=== PATIENT | female | born 1960 | race Two or more races ===

== ENCOUNTER 2024-09-30 05:49 | Inpatient (IN) | payer MEDICARE, OTHER ==
[~2024-09-30] VITALS: Ht 162.6 cm; Wt 57.4 kg
[2024-09-30] VITALS (7 sets, daily range): BP systolic 114–115; BP diastolic 67–76; PULSE 104–110; RESP 17–20; TEMP 98.2–98.8; O2SAT 93–98
--- NOTE | 2024-09-30 06:36 | ED.PDOC ---
History of Present Illness HPI Comments 56 year old female presents to the ED via EMS with a chief complaint of bilateral leg pain. Patient has stage 4 thyroid cancer, has metastasized to lungs, liver, bones, currently on chemo and is currently bed bound due to weakness. Patient was seen at [facility] 10 days ago due to a fall, was admitted for 3 days due to brain bleed, was discharged and advised to follow up with Neurosurgeon as outpatient, has not followed up. Patient called EMS due to bilateral leg pain with swelling noted, spoke to Oncologist and was advised to come to ED due to pain. No other symptoms or modifying factors present at this time. Chief Complaint: Lower Extremity Time Seen by MD: 06:15 Reviewed Notes: Medications, Allergies Allergies: Coded Allergies: Iodine (Verified Allergy, Unknown, 09/30/24) Penicillins (Verified Allergy, Unknown, 09/30/24) Prednisone (Verified Allergy, Unknown, 09/30/24) Sulfa Antibiotics (Verified Allergy, Unknown, 09/30/24) Information Source: Patient, Emergency Med Personnel Mode of Arrival: EMS Severity: Moderate Timing: Hours Duration: Since onset Prehospital treatment: None Past Medical History PAST MEDICAL HISTORY: Cancer (stage 4 thyroid) Surgical History: Unknown WELDER TECH History: Denies all WELDER TECH Hx Family History Family History: Reviewed,noncontributory to illness, No family hx of Cancer, No family hx of DM, No family hx of Heart reyes, No family hx of HTN, No family hx ofKidney reyes, No family hx of Liver reyes, No family hx of Lung reyes, No family hx of Stroke Social History Smoker: Non-Smoker Alcohol: Denies ETOH Use Drugs: Denies Drug Use Lives In: Home Constitutional: denies: chills, diaphoresis, fatigue, fever, malaise, sweats, weakness, others EENTM: denies: blurred vision, double vision, ear bleeding, ear discharge, ear drainage, ear pain, ear ringing, eye pain, eye redness, hearing loss, mouth pain, mouth swelling, nasal discharge, nose bleeding, nose congestion, nose pain, photophobia, tearing, throat pain, throat swelling, voice changes, others Respiratory: denies: cough, hemoptysis, orthopnea, SOB at rest, shortness of breath, SOB with excertion, stridor, wheezing, others Cardiovascular: denies: chest pain, dizzy spells, diaphoresis, Dyspnea on exertion, edema, irregular heart beat, left arm pain, lightheadedness, palpitations, PND, syncope, others Gastrointestinal: denies: abdomen distended, abdominal pain, blood streaked bowels, constipated, diarrhea, dysphagia, difficulty swallowing, hematemesis, melena, nausea, poor appetite, poor fluid intake, rectal bleeding, rectal pain, vomiting, others Genitourinary: denies: abnormal vagina bleeding, burning, dyspareunia, dysuria, flank pain, frequency, hematuria, incontinence, pain, , vagina discharge, urgency, others Neurological: denies: dizziness, fainting, headache, left sided numbness, left sided weakness, numbness, paresthesia, pre-existing deficit, right sided numbness, right sided weakness, seizure, speech problems, tingling, tremors, weakness, others Musculoskeletal: reports: others (bilateral leg pain); denies: back pain, gout, joint pain, joint swelling, muscle pain, muscle stiffness, neck pain Integumetry: denies: bruises, change in color, change in hair/nails, dryness, laceration, lesions, lumps, rash, wounds, others Allergic/Immunocompromised: denies: Difficulty Healing, Frequent Infections, Hives, Itching, others Hematologic/Lymphatic: denies: anemia, blood clots, easy bleeding, easy bruising, swollen glands, others Endocrine: denies: excessive hunger, excessive sweating, excessive thirst, excessive urination, flushing, intolerance to cold, intolerance to heat, unexplained weight gain, unexplained weight loss, others Psychiatric: denies: anxiety, bipolar disorder, depression, hopeless, panic disorder, schizophrenia, sleepless, suicidal, others All Other Systems: Reviewed and Negative Physical Exam General Appearance: Moderate Distress, Normal HEENT: Normal ENT Inspection, Pharynx Normal, TMs Normal Neck: Full Range of Motion, Non-Tender, Normal, Normal Inspection Respiratory: Chest Non-Tender, Lungs Clear, No Accessory Muscle Use, No Respiratory Distress, Normal Breath Sounds Cardiovascular: No Edema, No JVD, No Murmur, No Gallop, Normal Peripheral Pulses, Tachycardia Breast Exam: Deferred Gastrointestinal: No Organomegaly, Non Tender, No Pulsatile Mass, Normal Bowel Sounds, Soft Genitalia: Deferred Pelvic: Deferred Rectal: Deferred Extremities: No calf tenderness, Normal capillary refill, Non-tender, No pedal edema Musculoskeletal : Apperance: Normal Neurologic: Alert Cerebellar Function: NOT DONE Reflexes: NOT DONE Skin: Dry, Normal Color, Warm Peripheral Pulses: 3+ Radial (R), 3+ Radial (L) Lymphatic: No Adenopathy Was a procedure done? Was a procedure done?: No Differential Dx Considerations may include: Chronic pain syndrome X-Ray, Labs, Meds, VS Vital Signs Date Time Temp Pulse Resp B/P (MAP) Pulse Ox O2 Delivery O2 Flow Rate FiO2 09/30/24 06:43 97.9 111 15 143/91 (108) 95 97.9 09/30/24 06:02 98.2 110 15 135/80 99 98.2 Lab Test 09/30/24 06:50 Range/Units White Blood Count 4.3 L 4.4-10.8 10^3/uL Red Blood Count 2.41 L 4.0-5.20 10^6/uL Hemoglobin 7.3 L 12.2-16.2 g/dL Hematocrit 21.3 L 36.0-46.0 % Mean Corpuscular Volume 88.2 80.0-100.0 fL Mean Corpuscular Hemoglobin 30.2 28.0-32.0 pg Mean Corpuscular Hemoglobin Concent 34.2 32.0-36.0 g/dL Red Cell Distribution Width 18.0 H 11.8-14.3 % Platelet Count 162 140-450 10^3/uL Mean Platelet Volume 8.6 6.9-10.8 fL Neutrophils (%) (Auto) 78.5 37.0-80.0 % Lymphocytes (%) (Auto) 12.8 10.0-50.0 % Monocytes (%) (Auto) 7.3 0.0-12.0 % Eosinophils (%) (Auto) 1.1 0.0-7.0 % Basophils (%) (Auto) 0.3 0.0-2.0 % Neutrophils # (Auto) 3.3 1.6-8.6 10 ^3/uL Lymphocytes # (Auto) 0.5 0.4-5.4 10 ^3/uL Monocytes # (Auto) 0.3 0-1.3 10 ^3/uL Eosinophils # (Auto) 0 0-0.8 10 ^3/uL Basophils # (Auto) 0 0-0.2 10 ^3/uL Nucleated Red Blood Cells 0.3 % Sodium Level Pending Potassium Level Pending Chloride Level Pending Carbon Dioxide Level Pending Anion Gap Pending Blood Urea Nitrogen Pending Creatinine Pending Glomerular Filtration Rate Calc Pending BUN/Creatinine Ratio Pending Serum Glucose Pending Lactic Acid Level Pending Calcium Level Pending Current Medications Medications (Trade) Dose Ordered Sig/Joe Route Start Time Stop Time Status Last Admin Sodium Chloride 1,000 ml @ 1,000 mls/hr Q1H ONCE IV 09/30/24 06:45 09/30/24 07:44 09/30/24 07:02 Patient alert. Complaining of pain. Vitals stable. Answering questions. Tachycardia. Establish intravenous access. Was given fluids. Metastatic disease. Explained to the patient she will be admitted for pain control. Continue monitoring. Time of 1ST Reevaluation: 06:45 Reevaluation 1ST: Unchanged Patient Education/Counseling: Diagnosis, Treatment, Prognosis Family Education/Counseling: No Family Present Additional Information The following tests were ordered, and results were reviewed by me: CBC, UA, BMP, BLOOD CULTURE, LA W/ REFLEX Additional Information was gathered from interviewing the following independent historians: EMS I discussed treatment and results with medical personnel and: patient Comprehensive systems review obtained and negative except for what is stated in the HPI. SEPSIS Sepsis Screen Date sepsis recognized/suspect: Sep 30, 2024 Time Sepsis recognized/suspect: 0555 Recent Procedure: No On Antibiotic Therapy: No Respiratory Rate >20: No Heart Rate >90: Yes Temp<36 C (96.8 F) or >38.3 C: No SBP <90 or MAP <65 mmHG: No New Acute Mental Status Change: No Is the patient on CPAP, BIPAP,: No Physician Orders Urinalysis (09/30/24 06:40) Basic Metabolic Panel (09/30/24 06:40) Sodium Chloride 0.9% (09/30/24 06:45) Sodium Chloride 0.9% (09/30/24 06:45) Blood Culture (09/30/24 06:40) Lactic Acid W/ Reflex Order (09/30/24 06:40) Vital Signs Date Time Temp Pulse Resp B/P (MAP) Pulse Ox O2 Delivery O2 Flow Rate FiO2 09/30/24 06:43 97.9 111 15 143/91 (108) 95 97.9 09/30/24 06:02 98.2 110 15 135/80 99 98.2 Laboratory Tests Test 09/30/24 06:50 Lactic Acid Level Pending White Blood Count 4.3 10^3/uL (4.4-10.8) L Medications Medications Dose Ordered Sig/Joe Route Start Time Stop Time Status Last Admin Dose Admin Sodium Chloride 1,000 ml @ 1,000 mls/hr Q1H ONCE IV 09/30/24 06:45 09/30/24 07:44 09/30/24 07:02 Departure 1 Departure Time of Disposition: 07:37 Impression: Primary Impression: Metastatic disease Qualified Codes: C79.9 - Secondary malignant neoplasm of unspecified site Additional Impression: Chronic pain syndrome Disposition: ADMITTED INPATIENT Admit to: Med Surg Condition: Guarded Critical Care Note Critical Care Time?: No Stability Stability form required: No Heart Score Heart Score: Heart Score Response (Comments) Value History N/A 0 EKG N/A 0 Age N/A 0 Risk Factors N/A 0 Troponin N/A 0 Total 0 I personally scribed for GOKUL GUTIERREZ MD ([email or web address]) on 09/30/24 at 06:36. Electronically submitted by Radha Springer ([email or web address]). I personally scribed for GOKUL GUTIERREZ MD ([email or web address]) on 09/30/24 at 07:14. Electronically submitted by Radha Springer ([email or web address]). GOKUL GUTIERREZ MD Sep 30, 2024 06:36
[2024-09-30] MEDS: SODIUM CHLORIDE 0.9% 1,000 ML IV ONE ×2 (07:02→09:36)
[2024-09-30 07:22] LABS: Hematocrit 21.3 % (36.0-46.0); Hemoglobin 7.3 g/dL (12.2-16.2); Mean Corpuscular Hemoglobin 30.2 pg (28.0-32.0); Mean Corpuscular Volume 88.2 fL (80.0-100.0); Nucleated Red Blood Cells % 0.3 %
[2024-09-30 07:26] LABS: Chloride 103 mmol/L (98-107); Potassium 4.9 mmol/L (3.5-5.1); Sodium 138 mmol/L (136-145)
[2024-09-30 07:27] LABS: Anion Gap 10 (5-15); Carbon Dioxide 25 mmol/L (20-31)
[2024-09-30 07:32] LABS: BUN/Creatinine Ratio 19.6 (10.0-20.0)
[2024-09-30] MEDS: ONDANSETRON HCL 4 MG/2 ML VIAL IV ONE (07:41)
[2024-09-30] MEDS: HYDROmorphone HCL 2 MG/ML VL/or syr IV ONE ×2 (07:42→16:51)
[2024-09-30 07:45] LABS: Blood Urea Nitrogen 27 mg/dL (9-23); Calcium 6.9 mg/dL (8.7-10.4); Glucose 108 mg/dL (74-106)
[2024-09-30] MEDS: SODIUM CHLORIDE 0.9% 1,000 ML IV SCH (15:00)
[2024-09-30] MEDS: PANTOPRAZOLE 40 MG/10 ML VIAL INJ IV SCH (15:26)
--- NOTE | 2024-09-30 15:39 | DVH ---
EXAM: CT HEAD WITHOUT CONTRAST INDICATION: rule out intracranial bleed TECHNIQUE: CT of the head without intravenous contrast. Radiation Dose Information: CT Dose: CTDI volume is 53.99 mGy. Dose-length product is 863.9 mGy*cm The dose indicators for CT are the volume Computed Tomography (CT) Dose Index (CTDIvol) and the Dose Length Product (DLP), and are measured in units of mGy and mGy-cm, respectively. These indicators are not patient dose, but values generated from the CT scanner acquisition factors. The report includes radiation exposure data for exposures received during this examination. COMPARISON: None FINDINGS: There is no evidence of acute intracranial hemorrhage, extra-axial collection, mass effect, midline s hift, herniation or hydrocephalus. The ventricles, sulci and cisterns are age appropriate. The arroyo-white differentiation is intact. Patchy periventricular and subcortical white matter hypoattenuation is nonspecific but may be related to small vessel ischemic disease. Pole round lucencies in the bony calvarium varying size. Etiology uncertain. These may represent jose raul ous lakes can not exclude lytic lesions other etiologies. Consider MRI for further evaluation. The visualized paranasal sinuses and mastoid air cells are clear. The surrounding soft tissues and osseous structures are unremarkable. IMPRESSION: 1. No acute intracranial abnormality. 2. No acute intracranial hemorrhage. 3. Large lucent areas in the bony calvarium size is most likely venous lakes.
[2024-09-30 15:51] LABS: Amphetamine Screen, Urine Neg (NEGATIVE); Barbiturate Scree,Urine Neg (NEGATIVE); Benzodiazephine Screen, Urine Neg (NEGATIVE); Cannabinoid Screen, Urine Neg (NEGATIVE); Cocaine Screen, Urine Neg (NEGATIVE); Opiate Scree,Urine Neg (NEGATIVE); Phencyclidine Screen, Urine Neg (NEGATIVE)
--- NOTE | 2024-09-30 16:19 | DVH ---
US BiLat Lower DVT HISTORY: rule out DVT COMPARISON: None TECHNIQUE: Duplex doppler evaluation of the deep venous system of the lower extremity from the common femoral veins, superficial femoral vein, great saphenous vein, deep femoral vein, popliteal vein, an d calf veins, including color doppler and spectral/pulsed waveform analysis, was performed. FINDINGS: Right: - Common femoral vein: Compressible - Deep femoral vein: Compressible - Femoral vein: Compressible - Popliteal vein: Compressible - Posterior tibial vein: Waveforms present - Other: Nothing Left: - Common femoral vein: Compressible - Deep femoral vein: Compressible - Femoral vein: Compressible - Popliteal vein: Compressible - Posterior tibial vein: Waveforms present - Other: Nothing IMPRESSION: No right or left lower extremity deep venous thrombosis.
--- NOTE | 2024-09-30 16:35 | DVH ---
Indication: rule out obstruction Technique: Real-time ultrasound images of the neck vessels with arroyo-scale, color and wave Doppler we re obtained. Comparison: None Findings: The following peak systolic velocities were recorded in cm/sec: Right internal carotid: 92 Right common carotid: 66 Right external carotid: 67 Right internal/common carotid ratio: 1.4 Left internal carotid: 103 Left common carotid: 79 Left external carotid: 71 Left internal/common carotid ratio: 1.3 Right vertebral artery: Patent with normal antegrade direction of flow. Left vertebral artery: Patent with normal antegrade direction of flow. Impression: No hemodynamically significant stenosis by velocity criteria.
[2024-09-30 17:14] LABS: Albumin 3.8 g/dL (3.2-4.8); Bilirubin, Direct 0.2 mg/dL (<0.3); Bilirubin, Total 0.5 mg/dL (0.2-1.0); Total Protein 6.9 g/dL (5.7-8.2)
[2024-09-30 17:15] LABS: Free T3 2.13 pg/mL (2.3-4.2); Free T4 (Free Thyroxine) 0.97 ng/dL (0.89-1.76)
[2024-09-30 17:25] LABS: Alanine Aminotransferase < 9 U/L (7-40); Alkaline Phosphatase 230 U/L (46-116)
[2024-09-30 17:36] LABS: Urine Protein, UAD Trace (Negative)
[2024-09-30 17:40] LABS: INR 1.09 (0.9-1.15); Partial Thromboplastin Time 28.2 SEC (24.5-34.5); Prothrombin Time 11.5 sec (9.3-11.8)
[2024-09-30] MEDS ORDERED: [UNRECOGNIZED DRUG - CODE] PO (17:52)
[2024-09-30] MEDS ORDERED: AMLO1TAB22 PO (17:52)
[2024-09-30] MEDS ORDERED: CALC-312 PO (17:52)
[2024-09-30] MEDS ORDERED: MAGN1TAB29 PO (17:52)
[2024-09-30] MEDS ORDERED: HYDR-4798 PO (17:53)
[2024-09-30] MEDS ORDERED: IBUP-1456 PO (17:55)
--- NOTE | 2024-09-30 20:04 | DVHHPRES ---
History of Present Illness Resident Creating Document: BRITT TSAI RESIDENT Reason for Visit: b/l lower leg pain and weakness History of Present Illness Ms. Sage, 64-year-old female with past medical history significant for stage IV thyroid cancer status post total thyroidectomy in 2011, on chronic suppression therapy, in remission, ( previously known metastasis to lungs, liver, bones,), recent mechanical fall status post intracranial bleed, hypothyroidism, osteoarthritis came to the ED with chief complaints of bilateral leg pain, subjective weakness, without any fall or trauma. Denies any fever chills, trauma, fall, change of medication, recent surgery or immobility. Denies any previous history of bleeding or clotting disorder. Came from home as per the advice of hematoncologist for further evaluation of aforementioned symptoms , lives with family, notes compliance to the medication. Past Medical History stage IV thyroid cancer status post total thyroidectomy in 2011, on chronic suppression therapy, in remission, ( previously known metastasis to lungs, liver, bones,), recent mechanical fall status post intracranial bleed, hypothyroidism, osteoarthritis Past Surgical History s/p total thyroidectomy Family History: None, Other (noncontributory to the hopitalization ) Smoke: No ALCOHOL: none Drugs: None Lives: with Family Domestic Violence: Neg Review of Systems Constitutional: Yes: Weakness Eyes: No: Pain, Vision change, Conjunctivae inflammation, Eyelid inflammation, Other, Redness ENT: No: Ear pain, Ear discharge, Nose pain, Nose discharge, Nose congestion, Mouth pain, Mouth swelling, Throat pain, Throat swelling, Other Respiratory: No: Cough, Dry, Shortness of breath, SOB with excertion, Wheezing, Hemoptysis, Pleuritic Pain, Sputum, Wheezing, Other Cardiovascular: No: Chest Pain, Palpitations, Orthopnea, Paroxysmal Noc. Dyspnea, Edema, Lt Headedness, Other Gastrointestinal: No: Nausea, Vomiting, Abdominal Pain, Diarrhea, Constipation, Melena, Hematochezia, Other Genitourinary: No Dysuria, No Frequency, No Incontinence, No Hematuria, No Retention, No Other Musculoskeletal: back pain, foot pain Skin: No: Rash, Lesions, Jaundice, Bruising, Other Neurological: Weakness, Incoordination; No: Numbness, Change in speech, Confusion, Seizures, Other Allergies: Coded Allergies: Iodine (Verified Allergy, Unknown, 09/30/24) Penicillins (Verified Allergy, Unknown, 09/30/24) Prednisone (Verified Allergy, Unknown, 09/30/24) Sulfa Antibiotics (Verified Allergy, Unknown, 09/30/24) Medications Current Medications Medications Dose Ordered Sig/Joe Route Start Time Stop Time Status Last Admin Dose Admin Sodium Chloride 1,000 ml @ 60 mls/hr [id number] IV 09/30/24 15:00 09/30/24 15:00 60 MLS/HR Ondansetron HCl 4 mg Q4HP PRN IV 09/30/24 15:00 Pantoprazole Sodium 40 mg DAILY IV 09/30/24 15:15 09/30/24 15:26 40 MG Levothyroxine Sodium 100 mcg DAILY IV 10/01/24 10:00 UNV Exam Vital Signs Vital Signs Date Time Temp Pulse Resp B/P (MAP) Pulse Ox O2 Delivery O2 Flow Rate FiO2 09/30/24 17:20 98.8 98.8 09/30/24 17:15 110 20 114/67 (83) 98 09/30/24 08:53 Room Air* 0 21 General Appearance: Alert, Oriented X3, Cooperative, mild distress HEENT: Atraumatic, PERRLA, EOMI, Mucous membr. moist/pink Respiratory: Clear to auscultation, Normal air movement Cardiovascular: Regular rate, Normal S1, Normal S2, No murmurs, Other (tachycardia ) Abdominal: Normal bowel sounds, Soft, No tenderness, No hepatospenomegaly Extremities: No edema, Normal pulses, Other (tenderness on light tough b/l ) Skin: No rashes, No breakdown, No significant lesion Neuro: Other (deferred the patient has subjective felling of unsteadiness. ) Psych/Mental Status: Mental status NL, Mood NL Labs/Xrays Labs Test 09/30/24 16:57 09/30/24 16:50 09/30/24 14:20 09/30/24 06:50 Range/Units Lactic Acid Level 0.9 0.4-2.0 mmol/L Prothrombin Time 11.5 9.3-11.8 sec Prothrombin Time INR 1.09 0.9-1.15 Activated Partial Thromboplast Time 28.2 24.5-34.5 SEC D-Dimer, Quantitative 5.42 H 0.0-0.49 mg/L FEU Urine Color Light yellow Yellow Urine Clarity Clear Clear Urine pH 6.5 5.0-9.0 Urine Specific Nada 1.014 1.001-1.035 Urine Protein Trace H Negative Urine Ketones Negative Negative Urine Blood Trace H Negative /uL Urine Nitrite Negative Negative Urine Bilirubin Negative Negative Urine Urobilinogen Normal Negative mg/dL Urine Leukocyte Esterase Negative Negative /uL Urine RBC None seen 0 - 4 /hpf Urine Microscopic WBC 4 0-5 /HPF Urine Squamous Epithelial Cells Many <5 /hpf Urine Bacteria None seen None Seen /hpf Urine Glucose Normal Normal mg/dL Urine Opiates Screen Neg NEGATIVE Urine Fentanyl Screen Neg NEGATIVE Urine Barbiturates Screen Neg NEGATIVE Urine Phencyclidine Screen Neg NEGATIVE Urine Amphetamines Screen Neg NEGATIVE Urine Benzodiazepines Screen Neg NEGATIVE Urine Cocaine Screen Neg NEGATIVE Urine Cannabinoids Screen Neg NEGATIVE White Blood Count 4.3 L 4.4-10.8 10^3/uL Red Blood Count 2.41 L 4.0-5.20 10^6/uL Hemoglobin 7.3 L 12.2-16.2 g/dL Hematocrit 21.3 L 36.0-46.0 % Mean Corpuscular Volume 88.2 80.0-100.0 fL Mean Corpuscular Hemoglobin 30.2 28.0-32.0 pg Mean Corpuscular Hemoglobin Concent 34.2 32.0-36.0 g/dL Red Cell Distribution Width 18.0 H 11.8-14.3 % Platelet Count 162 140-450 10^3/uL Mean Platelet Volume 8.6 6.9-10.8 fL Neutrophils (%) (Auto) 78.5 37.0-80.0 % Lymphocytes (%) (Auto) 12.8 10.0-50.0 % Monocytes (%) (Auto) 7.3 0.0-12.0 % Eosinophils (%) (Auto) 1.1 0.0-7.0 % Basophils (%) (Auto) 0.3 0.0-2.0 % Neutrophils # (Auto) 3.3 1.6-8.6 10 ^3/uL Lymphocytes # (Auto) 0.5 0.4-5.4 10 ^3/uL Monocytes # (Auto) 0.3 0-1.3 10 ^3/uL Eosinophils # (Auto) 0 0-0.8 10 ^3/uL Basophils # (Auto) 0 0-0.2 10 ^3/uL Nucleated Red Blood Cells 0.3 % Sodium Level 138 136-145 mmol/L Potassium Level 4.9 3.5-5.1 mmol/L Chloride Level 103 98-107 mmol/L Carbon Dioxide Level 25 20-31 mmol/L Anion Gap 10 5-15 Blood Urea Nitrogen 27 H 9-23 mg/dL Creatinine 1.38 H 0.550-1.02 mg/dL Glomerular Filtration Rate Calc 45 >90 mL/min BUN/Creatinine Ratio 19.6 10.0-20.0 Serum Glucose 108 H 74-106 mg/dL Calcium Level 6.9 L 8.7-10.4 mg/dL Total Bilirubin 0.5 0.2-1.0 mg/dL Direct Bilirubin 0.2 <0.3 mg/dL Aspartate Amino Transferase (AST) 92 H 13-40 U/L Alanine Aminotransferase (ALT) < 9 7-40 U/L Alkaline Phosphatase 230 H 46-116 U/L Total Protein 6.9 5.7-8.2 g/dL Albumin 3.8 3.2-4.8 g/dL Thyroid Stimulating Hormone (TSH) 20.35 H 0.55-4.78 uIU/mL Free Thyroxine (T4) Calculated 0.97 0.89-1.76 ng/dL Free Triiodothyronine (T3) pg/mL 2.13 L 2.3-4.2 pg/mL Plasma/Serum Blood Alcohol < 3.0 <10 mg/dL SEPSIS Sepsis Screen Date sepsis recognized/suspect: Sep 30, 2024 Time Sepsis recognized/suspect: 719 Recent Procedure: No On Antibiotic Therapy: No Respiratory Rate >20: No Heart Rate >90: Yes Temp<36 C (96.8 F) or >38.3 C: No SBP <90 or MAP <65 mmHG: No New Acute Mental Status Change: No Is the patient on CPAP, BIPAP,: No Physician Orders Insert/Manage Urinary Catheter QSHIFT (09/30/24 14:33) Admit (09/30/24 14:51) Allergies (09/30/24 14:51) Code Status (09/30/24 14:51) Sodium Chloride 0.9% (09/30/24 15:00) Ondansetron Hcl (Zofran) (09/30/24 15:00) Fall Risk Precautions In Place QSHIFT (09/30/24 14:51) Complete Blood Count (10/01/24 04:00) Comprehensive Metabolic Panel (10/01/24 04:00) Npo (Nothing By Mouth) Diet (09/30/24 Dinner) Pt Request For Service (09/30/24 14:51) Echo 2d Mode Cardiac Dop (09/30/24 14:51) Carotid Duplx W Color Dop (09/30/24 14:51) Condition: Serious (09/30/24 14:51) Bedrest With Bathroom Privileg (09/30/24 14:51) Bedside Commode (09/30/24 14:51) Maintain Bed Rest (09/30/24 14:51) Sequential Compression Device (09/30/24 ) Head Without Contrast (09/30/24 14:59) Bilat Lower Dvt (09/30/24 14:59) Pantoprazole (Protonix) (09/30/24 15:15) Electrocardigram (09/30/24 15:06) Electrocardigram (09/30/24 16:06) Levothyroxine Injection (Synthroid Injec (09/30/24 19:30) Levothyroxine Injection (Synthroid Injec (10/01/24 10:00) Orthostatic Vital Signs (09/30/24 19:28) Ct Angio Chest Contrast (09/30/24 19:28) Vital Signs Date Time Temp Pulse Resp B/P (MAP) Pulse Ox O2 Delivery O2 Flow Rate FiO2 09/30/24 17:20 98.8 98.8 09/30/24 17:15 98.5 110 20 114/67 (83) 98 98.5 09/30/24 16:51 110 15 125/76 09/30/24 16:00 111 17 122/69 (86) 97 09/30/24 14:00 109 17 124/81 (95) 97 09/30/24 12:20 105 18 121/74 (90) 93 Laboratory Tests Test 09/30/24 16:57 Lactic Acid Level 0.9 mmol/L (0.4-2.0) Medications Medications Dose Ordered Sig/Joe Route Start Time Stop Time Status Last Admin Dose Admin Hydromorphone HCl 1 mg ONCE ONCE IV 09/30/24 16:45 09/30/24 16:46 DC 09/30/24 16:51 1 MG Pantoprazole Sodium 40 mg DAILY IV 09/30/24 15:15 09/30/24 15:26 40 MG Sodium Chloride 1,000 ml @ 60 mls/hr [id number] IV 09/30/24 15:00 09/30/24 15:00 60 MLS/HR Assessment/Plan Assessment/Plan # Sinus Tachycardia: palpiation r/o PE with CTPE if positive needs further discussion of anticoagulation risk benefit , EKG 12 lead pending. r/o R heart strain. 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 # hypothyroidism: TSH > 10 will start iv levothyroxine, dose adjustment at discharge and TSH f/u in 6-8 weeks # osteoarthritis: pain mx with PT as needed home analgesics # history of recent fall, mechanical: Fall precaution, physical therapy, check B12 folate. # Bilateral leg swelling, pain, weakness,: CT to check, depending on the further evaluation neurology questionable, DVT prophylaxis with SCDs only. DVT U/S to rule out thrombosis. 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 # Follows with the [facility] [place] hemat[place]cology # chronic neuropathic pain, back pain, on # High risk of stress GI ulcer # mild transamnitis follow cmp # hypocalcemia: vitamin d and caco3 # HTN: amlodipine5 at home, bp well managed, target 140/90 as per AHA/ACC start if BP elevated. # to r/o Retevmo (selpercatinib) side effects GI ppx: IV pantoprazole DVT ppx: NO anticoagulants, no ASA, no Lovenox, SCDs only. Code Status: Full. Plan and goals of care discussed over [address] Hyatt. Plan discussed with: Patient, Daughter My Orders Orders - BRITT TSAI RESIDENT Procedure Category Date Status Time Admit ADMIT 09/30/24 Transmitted 14:51 Allergies LARRY 09/30/24 In Process 14:51 Code Status CODE 09/30/24 Transmitted 14:51 Sodium Chloride 0.9% PHA 09/30/24 In Process 15:00 Ondansetron Hcl PHA 09/30/24 In Process (Zofran) 15:00 Fall Risk Precautions LARRY 09/30/[address] 14:51 Complete Blood Count LAB 10/01/24 Verified 04:00 Comprehensive LAB 10/01/24 Verified Metabolic Panel 04:00 Npo (Nothing By DIET 09/30/24 Transmitted Mouth) Diet Dinner Pt Request For Service PT 09/30/24 Logged 14:51 Echo 2d Mode Cardiac US 09/30/24 Logged DOP 14:51 Carotid Duplx W Color US 09/30/24 Resulted DOP 14:51 Condition: Serious LARRY 09/30/24 In Process 14:51 Bedrest With Bathroom LARRY 09/30/24 In Process Privileg 14:51 Bedside Commode LARRY 09/30/24 In Process 14:51 Maintain Bed Rest LARRY 09/30/24 In Process 14:51 Sequential LARRY 09/30/24 In Process Compression Device Head Without Contrast CT 09/30/24 Resulted 14:59 Bilat Lower Dvt US 09/30/24 Resulted 14:59 Pantoprazole PHA 09/30/24 In Process (Protonix) 15:15 Electrocardigram EKG 09/30/24 Logged 15:06 Electrocardigram EKG 09/30/24 Logged 16:06 Levothyroxine PHA 09/30/24 Logged Injection (Synthroid 19:30 Levothyroxine PHA 10/01/24 Logged Injection (Synthroid 10:00 Orthostatic Vital ORDERS 09/30/24 Transmitted Signs 19:[address] 09/30/24 Logged Contrast 19:28 Date of Service: Sep 30, 2024 Billing Provider: FIDENCIO HYATT MD Common Visit Codes: [id number] INP/OBS CARE (HIGH) BRITT TSAI RESIDENT Sep 30, 2024 20:04 FIDENCIO HYATT MD Oct 02, 2024 21:25
[2024-09-30] MEDS: HYDROcodone-ACET 10/325MG TAB PO PRN (20:18)
[2024-09-30] MEDS: LEVOTHYROXINE SODIUM 100 MCG/5 ML INJ IV ONE (20:18)
[2024-09-30] MEDS: ERGOCALCIFEROL 50,000 UNIT(1.25MG) CAP PO SCH (20:18)
[2024-09-30] MEDS: CALCIUM CARB 500 MG CHEW TAB PO SCH (21:50)
[2024-10-01] VITALS (7 sets, daily range): BP systolic 112–135; BP diastolic 73–89; PULSE 104–123; RESP 15–19; TEMP 97.1–98.5; O2SAT 95–99
[2024-10-01 03:55] LABS: COVID19 ANTIGEN SOFIA FIA NEGATIVE (NEGATIVE)
[2024-10-01 06:45] LABS: Hematocrit 22.8 % (36.0-46.0); Hemoglobin 7.2 g/dL (12.2-16.2); Mean Corpuscular Hemoglobin 28.9 pg (28.0-32.0); Mean Corpuscular Volume 91.5 fL (80.0-100.0); Nucleated Red Blood Cells % 0.7 %
[2024-10-01 06:58] LABS: Albumin 3.8 g/dL (3.2-4.8); Anion Gap 14 (5-15); BUN/Creatinine Ratio 16.7 (10.0-20.0); Blood Urea Nitrogen 22 mg/dL (9-23); Carbon Dioxide 22 mmol/L (20-31); Chloride 105 mmol/L (98-107); Glucose 84 mg/dL (74-106); Potassium 5.0 mmol/L (3.5-5.1); Sodium 141 mmol/L (136-145); Total Protein 6.9 g/dL (5.7-8.2)
[2024-10-01 06:59] LABS: Alanine Aminotransferase < 9 U/L (7-40); Alkaline Phosphatase 222 U/L (46-116); Bilirubin, Total 0.5 mg/dL (0.2-1.0); Calcium 6.7 mg/dL (8.7-10.4)
[2024-10-01] MEDS: LEVOTHYROXINE SODIUM 100 MCG/5 ML INJ IV SCH (09:19)
--- NOTE | 2024-10-01 16:09 | DVHPN2 ---
Subjective seen today, comfortable on RA, discussed with iv study for both ct head neck angio and ct chest PE r/o, patient refused and understand the risk. as current oxygenation is good and no neuro deficit, will defer exam. VQ scan and echo ordered. risk benefit explained. Changes from previous H/P or p: No Changes Eyes: No Pain, No Vision change, No Conjunctivae inflammation, No Eyelid inflammation, No Other, No Redness ENT: No Ear pain, No Ear discharge, No Nose pain, No Nose discharge, No Nose congestion, No Mouth pain, No Mouth swelling, No Throat pain, No Throat swelling, No Other Cardiovascular: No Chest Pain, No Palpitations, No Orthopnea, No Paroxysmal Noc. Dyspnea, No Edema, No Lt Headedness, No Other Respiratory: No Cough, No Dry, No Shortness of breath, No SOB with excertion, No Wheezing, No Hemoptysis, No Pleuritic Pain, No Sputum, No Other Gastrointestinal: No Nausea, No Vomiting, No Abdominal Pain, No Diarrhea, No Constipation, No Melena, No Hematochezia, No Other Genitourinary: No Dysuria, No Frequency, No Incontinence, No Hematuria, No Retention, No Other Musculoskeletal: back pain, foot pain Skin: No Rash, No Lesions, No Jaundice, No Bruising, No Other Objective Vitals Vital Signs Date Time Temp Pulse Resp B/P (MAP) Pulse Ox O2 Delivery O2 Flow Rate FiO2 10/01/24 09:00 97.7 105 15 127/85 (99) 99 97.7 10/01/24 08:00 Room Air* 0 21 Intake/Output Intake and Output 10/01/24 07:00 Intake Total 750 ml Output Total 700 ml Balance 50 ml Intake Oral 30 ml IV Total 720 ml Output Urine Total 700 ml Medications Current Medications Medications Dose Ordered Sig/Joe Route Start Time Stop Time Status Last Admin Dose Admin Sodium Chloride 1,000 ml @ 60 mls/hr [id number] IV 09/30/24 15:00 10/01/24 09:19 60 MLS/HR Ondansetron HCl 4 mg Q4HP PRN IV 09/30/24 15:00 Pantoprazole Sodium 40 mg DAILY IV 09/30/24 15:15 10/01/24 12:16 40 MG Levothyroxine Sodium 100 mcg DAILY IV 10/01/24 10:00 10/01/24 09:19 100 MCG Ergocalciferol 50,000 unit Q7D PO 09/30/24 20:00 09/30/24 20:18 50,000 UNIT Calcium Carbonate 500 mg BID PO 09/30/24 22:00 10/01/24 09:19 500 MG Patient Own Medication 240 mg BID PO 09/30/24 22:00 Hold Acetaminophen/ Hydrocodone Bitart 1 tab Q8HP PRN PO 09/30/24 20:15 10/01/24 14:01 1 TAB Laboratory Results Laboratory Tests 10/01/24 05:47 Chemistry Test 09/30/24 21:25 10/01/24 05:47 Magnesium Level 1.9 mg/dL (1.6-2.6) Albumin 3.8 g/dL (3.2-4.8) Calcium Level 6.7 mg/dL (8.7-10.4) L Phosphorus Level 4.2 mg/dL (2.4-5.1) Total Protein 6.9 g/dL (5.7-8.2) Coagulation Test 09/30/24 16:50 Prothrombin Time 11.5 sec (9.3-11.8) Prothrombin Time INR 1.09 (0.9-1.15) Activated Partial Thromboplast Time 28.2 SEC (24.5-34.5) D-Dimer, Quantitative 5.42 mg/L FEU (0.0-0.49) H LFT Test 10/01/24 05:47 Alanine Aminotransferase (ALT) < 9 U/L (7-40) Alkaline Phosphatase 222 U/L (46-116) H Aspartate Amino Transferase (AST) 85 U/L (13-40) H Total Bilirubin 0.5 mg/dL (0.2-1.0) Urinalysis Test 09/30/24 14:20 Urine Color Light yellow (Yellow) Urine Clarity Clear (Clear) Urine pH 6.5 (5.0-9.0) Urine Specific Smoot 1.014 (1.001-1.035) Urine Protein Trace (Negative) H Urine Ketones Negative (Negative) Urine Blood Trace /uL (Negative) H Urine Nitrite Negative (Negative) Urine Bilirubin Negative (Negative) Urine Urobilinogen Normal mg/dL (Negative) Urine Leukocyte Esterase Negative /uL (Negative) Urine RBC None seen /hpf (0 - 4) Urine Microscopic WBC 4 /HPF (0-5) Urine Squamous Epithelial Cells Many /hpf (<5) Urine Bacteria None seen /hpf (None Seen) Urine Glucose Normal mg/dL (Normal) Microbiology Microbiology Date/Time Source Procedure Growth Status 09/30/24 06:50 Blood Blood Culture - Preliminary NO GROWTH AFTER 24 HOURS OF INCUBATION. Resulted Assessment/Plan Assessment/Plan sinus tach stage iv thyroid cancer s/p thyroidectomy chronic suppression therapy prior mechanical fall with intracranial bleed, currently stable hypothyroidism OA bl. oeg weakness chronic pain transaminitis HTN PE? TIA? c/w current treatment defer CTPE and cta head neck due to allergy and patient refusing VQ, echo lipitor pain management high bleeding risk, will defer empiric treatment dvt ppx SCD diet reg full code Plan discussed with: Patient My Orders Orders - FIDENCIO BOWEN MD Procedure Category Date Status Time Renal DIET 10/01/24 Transmitted Standard(2gna,3gk,Lopho) Dinner Nm Vq Scan NM 10/01/24 Transmitted 16:04 Echo 2d Mode Cardiac US 10/01/24 Verified DOP 16:05 Date of Service: Oct 01, 2024 Billing Provider: FIDENCIO BOWEN MD Common Visit Codes: [id number] INP/OBS CARE(HIGH) FIDENCIO BOWEN MD Oct 01, 2024 16:09
[2024-10-01] MEDS: SODIUM CHLORIDE 0.9% 1,000 ML IV ONE (16:52)
[2024-10-02] VITALS (15 sets, daily range): BP systolic 116–135; BP diastolic 70–89; PULSE 104–112; RESP 12–20; TEMP 97.7–98.4; O2SAT 92–100
[2024-10-02 07:58] LABS: Hematocrit 20.5 % (36.0-46.0); Mean Corpuscular Hemoglobin 28.5 pg (28.0-32.0); Mean Corpuscular Volume 91.8 fL (80.0-100.0); Nucleated Red Blood Cells % 0.4 %
[2024-10-02 08:01] LABS: Potassium 4.3 mmol/L (3.5-5.1); Sodium 143 mmol/L (136-145)
[2024-10-02 08:02] LABS: Anion Gap 10 (5-15); Carbon Dioxide 24 mmol/L (20-31)
[2024-10-02 08:04] LABS: Hemoglobin 6.4 g/dL (12.2-16.2)
[2024-10-02 08:05] LABS: Chloride 109 mmol/L (98-107)
[2024-10-02 08:06] LABS: Calcium 6.8 mg/dL (8.7-10.4)
[2024-10-02 08:08] LABS: BUN/Creatinine Ratio 19.2 (10.0-20.0); Glucose 97 mg/dL (74-106)
[2024-10-02 08:10] LABS: Blood Urea Nitrogen 25 mg/dL (9-23)
[2024-10-02 08:15] LABS: INR 1.08 (0.9-1.15); Partial Thromboplastin Time 30.7 SEC (24.5-34.5); Prothrombin Time 11.4 sec (9.3-11.8)
[2024-10-02 10:16] LABS: Hematocrit 20.4 % (36.0-46.0)
[2024-10-02 10:20] LABS: Hemoglobin 6.4 g/dL (12.2-16.2)
--- NOTE | 2024-10-02 10:21 | DVHSR ---
APPROVED REPORT EXAM: Two-dimensional and M-mode echocardiogram with Doppler and color Doppler. Blood Pressure: 135/89 mmHg INDICATION rule out structural heart disease RISK FACTORS Height: 135, Weight: 89 DIMENSIONS LVDd3.5 (3.8-5.7cm)LA (2D) (1.9-4.0cm)Aortic Root2.8 (2.0-3.7cm) LVDs2.3 (2.5-4.0cm)LA (MM) (1.9-4.0cm)Aortic Cusp Exc1.7 (1.5-2.0cm) EF (%) 65.0 (55-70%)Rt. Atrium (1.9-4.0cm)Asc. Aorta cm IVSd1.2 (0.7-1.1cm)RV (D) (1.8-2.4cm) PWd1.0 (0.7-1.1cm) Mitral Valve MitralMitral Stenosis E wave0.78m/sMV Mean GR.mmHg A wave0.91m/sMV Peak GR.mmHg E/A ratio0.92D MVAcm2 DECEL [id number] 1/2 Timems Aortic Valve Aortic ValveAortic Stenosis V10.91m/Corey Mean GR.mmHg V21.20m/Corey Peak GR.6mmHg LVOT Diameter2.2 (1.8-2.4cm)Doppler AVA2.88cm2 Pulmonic Valve V20.66m/s Tricuspid Valve TR Velocity3.12m/s [id number] Conclusion lvef 65% mild LVH moderate tricuspid regurg moderately large pericardial effusion noted that is circumferential, no obvious RV collapse note results given to RN and MD echols stat
[2024-10-02] MEDS: LACTATED RINGER'S 500 ML IV ONE (10:53)
--- NOTE | 2024-10-02 11:23 | DVHINCON2 ---
Date of service: Oct 02, 2024 History of Present Illness 64 yo F with metastatic thyroid cancer, ongoing chemo admitted for weakness, severe anemia. pt had echo showing large pericardial effusion . i spoke to [facility] Past Medical History reviewed Family History: FH: lung cancer G8 FATHER Allergies: Coded Allergies: Iodine (Verified Allergy, Unknown, 09/30/24) Penicillins (Verified Allergy, Unknown, 09/30/24) Prednisone (Verified Allergy, Unknown, 09/30/24) Sulfa Antibiotics (Verified Allergy, Unknown, 09/30/24) Home Meds Reported Medications Ibuprofen (Ibuprofen) 800 Mg Tab, 800 MG PO Q6HP PRN for PAIN SCALE 1 THRU 6, MG 09/30/24 Hydrocodone-Acetaminophen (Hydrocodone Bitartrate/AC 10-325 mg) 1 Tab Tab, 1 TAB PO Q8HP PRN for PAIN SCALE 7 THRU 10, TAB 09/30/24 Magnesium (Magnesium 400 mg) 1 Tab Tab, 200 MG PO DAILY, TAB 09/30/24 Calcium (Calcium) 500 Mg Tab, 500 MG PO DAILY, TAB 09/30/24 Selpercatinib (Retevmo) 40 Mg Cap, 240 MG PO BID, CAP 09/30/24 Amlodipine Besylate (Amlodipine Besylate) 5 Mg Tab, 5 MG PO DAILY for 30 Days, MG 09/30/24 Review of Systems 10 pt ros otherwise negative Vital Signs Vital Signs Date Time Temp Pulse Resp B/P (MAP) Pulse Ox O2 Delivery O2 Flow Rate FiO2 10/02/24 08:48 98.0 104 16 133/84 (100) 100 98.0 10/01/24 20:00 Room Air* 0 21 Physical Exam NAD, old frail pt s1 s2 tachycardic ctab soft nt/ nd Labs/Diagnostic Data Labs Test 10/02/24 09:19 10/02/24 07:32 10/01/24 05:47 10/01/24 03:10 Range/Units Hemoglobin 6.4 *L 12.2-16.2 g/dL Hematocrit 20.4 L 36.0-46.0 % White Blood Count 5.4 4.4-10.8 10^3/uL Red Blood Count 2.23 L 4.0-5.20 10^6/uL Mean Corpuscular Volume 91.8 80.0-100.0 fL Mean Corpuscular Hemoglobin 28.5 28.0-32.0 pg Mean Corpuscular Hemoglobin Concent 31.1 L 32.0-36.0 g/dL Red Cell Distribution Width 18.5 H 11.8-14.3 % Platelet Count 162 140-450 10^3/uL Mean Platelet Volume 8.5 6.9-10.8 fL Neutrophils (%) (Auto) 80.6 H 37.0-80.0 % Lymphocytes (%) (Auto) 10.8 10.0-50.0 % Monocytes (%) (Auto) 6.9 0.0-12.0 % Eosinophils (%) (Auto) 1.2 0.0-7.0 % Basophils (%) (Auto) 0.5 0.0-2.0 % Neutrophils # (Auto) 4.4 1.6-8.6 10 ^3/uL Lymphocytes # (Auto) 0.6 0.4-5.4 10 ^3/uL Monocytes # (Auto) 0.4 0-1.3 10 ^3/uL Eosinophils # (Auto) 0.1 0-0.8 10 ^3/uL Basophils # (Auto) 0 0-0.2 10 ^3/uL Nucleated Red Blood Cells 0.4 % Prothrombin Time 11.4 9.3-11.8 sec Prothrombin Time INR 1.08 0.9-1.15 Activated Partial Thromboplast Time 30.7 24.5-34.5 SEC Sodium Level 143 136-145 mmol/L Potassium Level 4.3 3.5-5.1 mmol/L Chloride Level 109 H 98-107 mmol/L Carbon Dioxide Level 24 20-31 mmol/L Anion Gap 10 5-15 Blood Urea Nitrogen 25 H 9-23 mg/dL Creatinine 1.30 H 0.550-1.02 mg/dL Glomerular Filtration Rate Calc 46 >90 mL/min BUN/Creatinine Ratio 19.2 10.0-20.0 Serum Glucose 97 74-106 mg/dL Calcium Level 6.8 L 8.7-10.4 mg/dL Phosphorus Level 4.2 2.4-5.1 mg/dL Total Bilirubin 0.5 0.2-1.0 mg/dL Aspartate Amino Transferase (AST) 85 H 13-40 U/L Alanine Aminotransferase (ALT) < 9 7-40 U/L Alkaline Phosphatase 222 H 46-116 U/L Total Protein 6.9 5.7-8.2 g/dL Albumin 3.8 3.2-4.8 g/dL Influenza Type A Antigen Negative Negative Influenza Type B Antigen Negative Negative SARS-CoV-2 Antigen (Rapid) Negative NEGATIVE Test 09/30/24 21:25 09/30/24 16:57 09/30/24 16:50 09/30/24 14:20 Range/Units Uric Acid 9.5 H 3.1-7.8 mg/dL Magnesium Level 1.9 1.6-2.6 mg/dL Lactic Acid Level 0.9 0.4-2.0 mmol/L D-Dimer, Quantitative 5.42 H 0.0-0.49 mg/L FEU Urine Color Light yellow Yellow Urine Clarity Clear Clear Urine pH 6.5 5.0-9.0 Urine Specific Flynn 1.014 1.001-1.035 Urine Protein Trace H Negative Urine Ketones Negative Negative Urine Blood Trace H Negative /uL Urine Nitrite Negative Negative Urine Bilirubin Negative Negative Urine Urobilinogen Normal Negative mg/dL Urine Leukocyte Esterase Negative Negative /uL Urine RBC None seen 0 - 4 /hpf Urine Microscopic WBC 4 0-5 /HPF Urine Squamous Epithelial Cells Many <5 /hpf Urine Bacteria None seen None Seen /hpf Urine Glucose Normal Normal mg/dL Urine Opiates Screen Neg NEGATIVE Urine Fentanyl Screen Neg NEGATIVE Urine Barbiturates Screen Neg NEGATIVE Urine Phencyclidine Screen Neg NEGATIVE Urine Amphetamines Screen Neg NEGATIVE Urine Benzodiazepines Screen Neg NEGATIVE Urine Cocaine Screen Neg NEGATIVE Urine Cannabinoids Screen Neg NEGATIVE Test 09/30/24 06:50 Range/Units Hemoglobin A1c 6.0 H <5.7 % A1C Direct Bilirubin 0.2 <0.3 mg/dL Thyroid Stimulating Hormone (TSH) 20.35 H 0.55-4.78 uIU/mL Free Thyroxine (T4) Calculated 0.97 0.89-1.76 ng/dL Free Triiodothyronine (T3) pg/mL 2.13 L 2.3-4.2 pg/mL Plasma/Serum Blood Alcohol < 3.0 <10 mg/dL Microbiology Date/Time Source Procedure Growth Status 09/30/24 06:50 Blood Blood Culture - Preliminary NO GROWTH AFTER 48 HOURS OF INCUBATION. Resulted Assessment pericardial effusion large tachycardia anemia metastatic thyroid cancer Plan/Recommendation recommend tx to [facility] for further eval given complexity of patient she may need a pericardial window as high rate of recurrence of fluid after a centesis given severe anemia, a procedure here would be very high risk and can result in hypovolemic shock prbc transfusion as feasible spoke to pt and Dr Hyatt yesterday and today regarding my recommendations Plan discussed with: Patient TRACEY PAPPAS MD Oct 02, 2024 11:23
--- NOTE | 2024-10-02 14:37 | DVHPNRES ---
Progress Note Date Seen: Oct 02, 2024 Resident Creating Document: DIVYA PICKERING Medical Necessity Reason Pt with a Central, PICC or Fol: No Subjective Review of Systems Patient seen at bedside. She wants to transfer to another hospital. Patient anemic, 1 PRBC given. Objective vital signs Vital Sign Date Time Temp Pulse Resp B/P (MAP) Pulse Ox O2 Delivery O2 Flow Rate FiO2 10/02/24 13:00 97.7 109 20 118/70 (86) 98 97.7 10/02/24 08:00 Room Air* 0 21 Total Intake and Output 10/01/24 10/01/24 10/02/24 15:00 23:00 07:00 Intake Total 840 ml 240 ml Balance 840 ml 240 ml medications Current Medications Medications Dose Ordered Sig/Joe Route Start Time Stop Time Status Last Admin Dose Admin Sodium Chloride 1,000 ml @ 60 mls/hr [id number] IV 09/30/24 15:00 10/01/24 09:19 60 MLS/HR Ondansetron HCl 4 mg Q4HP PRN IV 09/30/24 15:00 Pantoprazole Sodium 40 mg DAILY IV 09/30/24 15:15 10/01/24 12:16 40 MG Levothyroxine Sodium 100 mcg DAILY IV 10/01/24 10:00 10/01/24 09:19 100 MCG Ergocalciferol 50,000 unit Q7D PO 09/30/24 20:00 09/30/24 20:18 50,000 UNIT Calcium Carbonate 500 mg BID PO 09/30/24 22:00 10/01/24 22:14 500 MG Patient Own Medication 240 mg BID PO 09/30/24 22:00 Hold Acetaminophen/ Hydrocodone Bitart 1 tab Q8HP PRN PO 09/30/24 20:15 10/02/24 09:36 1 TAB Examination Constitutional: Yes: Weakness Eyes: No: Pain, Vision change, Conjunctivae inflammation, Eyelid inflammation, Other, Redness ENT: No: Ear pain, Ear discharge, Nose pain, Nose discharge, Nose congestion, Mouth pain, Mouth swelling, Throat pain, Throat swelling, Other Respiratory: No: Cough, Dry, Shortness of breath, SOB with excertion, Wheezing, Hemoptysis, Pleuritic Pain, Sputum, Wheezing, Other Cardiovascular: No: Chest Pain, Palpitations, Orthopnea, Paroxysmal Noc. Dyspnea, Edema, Lt Headedness, Other Gastrointestinal: No: Nausea, Vomiting, Abdominal Pain, Diarrhea, Constipation, Melena, Hematochezia, Other Genitourinary: No Dysuria, No Frequency, No Incontinence, No Hematuria, No Retention, No Other Musculoskeletal: back pain, foot pain Skin: No: Rash, Lesions, Jaundice, Bruising, Other Neurological: Weakness, Incoordination; No: Numbness, Change in speech, Confusion, Seizures, Other laboratory and microbiology Laboratory Tests 10/02/24 09:19 10/02/24 07:32 Test 10/02/24 07:32 Range/Units Serum Glucose 97 74-106 mg/dL Microbiology Date/Time Source Procedure Growth Status 09/30/24 06:50 Blood Blood Culture - Preliminary NO GROWTH AFTER 48 HOURS OF INCUBATION. Resulted Problem List/Assessment/Plan Problem List/Assessment/Plan # Sinus Tachycardia: palpiation r/o PE with CTPE if positive needs further discussion of anticoagulation risk benefit , EKG 12 lead pending. r/o R heart strain. 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 # hypothyroidism: TSH > 10 will start iv levothyroxine, dose adjustment at discharge and TSH f/u in 6-8 weeks # osteoarthritis: pain mx with PT as needed home analgesics # history of recent fall, mechanical: Fall precaution, physical therapy, check B12 folate. # Bilateral leg swelling, pain, weakness,: CT to check, depending on the further evaluation neurology questionable, DVT prophylaxis with SCDs only. DVT U/S to rule out thrombosis. 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 # Follows with the [facility] # chronic neuropathic pain, back pain, on # High risk of stress GI ulcer # mild transamnitis follow cmp # hypocalcemia: vitamin d and caco3 # HTN: amlodipine5 at home, bp well managed, target 140/90 as per AHA/ACC start if BP elevated. # to r/o Retevmo (selpercatinib) side effects # anemia - 1 PRBC GI ppx: IV pantoprazole Code Status: Full. Plan and goals of care discussed over [address] Bowen. Plan discussed with: Patient Date of Service: Oct 02, 2024 Billing Provider: FIDENCIO BOWEN MD Common Visit Codes: [id number] INP/OBS CARE(HIGH) DIVYA PICKERING RESIDENT Oct 02, 2024 14:23 FIDENCIO BOWEN MD Oct 07, 2024 21:39
[2024-10-02 18:41] LABS: Hematocrit 25.3 % (36.0-46.0); Hemoglobin 8.2 g/dL (12.2-16.2)
[2024-10-03] VITALS (8 sets, daily range): BP systolic 124–146; BP diastolic 85–93; PULSE 101–111; RESP 16–20; TEMP 97.7–98.8; O2SAT 92–99
[2024-10-03] MEDS: KETOROLAC TROMETH 30 MG/ML 1ML VIAL IV ONE (04:36)
[2024-10-03] MEDS: SELPERCATINIB PO SCH (07:55)
[2024-10-03 13:56] LABS: Hematocrit 32.1 % (36.0-46.0); Hemoglobin 10.3 g/dL (12.2-16.2); Mean Corpuscular Hemoglobin 29.5 pg (28.0-32.0); Mean Corpuscular Volume 92.4 fL (80.0-100.0); Nucleated Red Blood Cells % 0.5 %
[2024-10-03 13:57] LABS: Potassium 4.5 mmol/L (3.5-5.1); Sodium 143 mmol/L (136-145)
[2024-10-03 13:58] LABS: Anion Gap 12 (5-15); Carbon Dioxide 24 mmol/L (20-31)
[2024-10-03 13:59] LABS: Calcium 6.4 mg/dL (8.7-10.4); Chloride 107 mmol/L (98-107)
[2024-10-03 14:03] LABS: BUN/Creatinine Ratio 25.0 (10.0-20.0); Glucose 100 mg/dL (74-106)
[2024-10-03 14:04] LABS: Blood Urea Nitrogen 26 mg/dL (9-23)
--- NOTE | 2024-10-03 14:45 | DVH ---
NUCLEAR MEDICINE VENTILATION/PERFUSION LUNG SCAN. INDICATION: PULMONARY EMBOLISM TECHNIQUE: Following intravenous demonstration of 6 millicuries of technetium 99m MAA, in multipl e projections of the lungs. FINDINGS: There is normal uptake of radionuclide on both the perfusion portions of the examination. No perfus ion defects are demonstrated. IMPRESSION: Low probability for PE.
--- NOTE | 2024-10-03 16:52 | DVHPN2 ---
Progress Note Date Seen: Oct 03, 2024 Medical Necessity Reason Pt with a Central, PICC or Fol: No Subjective Other Systems: per RN tx to [facility] probably today awaiting bed Objective vital signs Vital Sign Date Time Temp Pulse Resp B/P (MAP) Pulse Ox O2 Delivery O2 Flow Rate FiO2 10/03/24 13:00 97.7 102 19 132/91 (105) 98 97.7 10/03/24 08:00 Room Air* 0 21 Total Intake and Output 10/02/24 10/02/24 10/03/24 15:00 23:00 07:00 Intake Total 500 ml 1130 ml 600 ml Balance 500 ml 1130 ml 600 ml medications Current Medications Medications Dose Ordered Sig/Joe Route Start Time Stop Time Status Last Admin Dose Admin Sodium Chloride 1,000 ml @ 60 mls/hr [id number] IV 09/30/24 15:00 10/02/24 16:49 60 MLS/HR Ondansetron HCl 4 mg Q4HP PRN IV 09/30/24 15:00 Pantoprazole Sodium 40 mg DAILY IV 09/30/24 15:15 10/01/24 12:16 40 MG Levothyroxine Sodium 100 mcg DAILY IV 10/01/24 10:00 10/03/24 08:52 100 MCG Ergocalciferol 50,000 unit Q7D PO 09/30/24 20:00 09/30/24 20:18 50,000 UNIT Calcium Carbonate 500 mg BID PO 09/30/24 22:00 10/03/24 08:52 500 MG Patient Own Medication 240 mg BID PO 09/30/24 22:00 Hold Acetaminophen/ Hydrocodone Bitart 1 tab Q8HP PRN PO 09/30/24 20:15 10/03/24 11:06 1 TAB Examination: GENERAL:Abnormal, HEENT:Abnormal, LUNGS:Abnormal, CVS:Abnormal, ABDOMEN:Abnormal laboratory and microbiology Laboratory Tests 10/03/24 13:10 Test 10/03/24 13:10 Range/Units Serum Glucose 100 74-106 mg/dL Microbiology Date/Time Source Procedure Growth Status 09/30/24 06:50 Blood Blood Culture - Preliminary NO GROWTH AFTER 72 HOURS OF INCUBATION. Resulted Problem List/Assessment/Plan Problem List/Assessment/Plan metastatic thyroid cancer anemia severe large pericardial effusion hypovolemic shock tachycardia IVF as needed, prbc as needed tx to [facility] jimmy- -may need pericardial window high risk pt recommend transfer jimmy given oncologic issues Plan discussed with: Patient Date of Service: Oct 03, 2024 Billing Provider: TRACEY PAPPAS MD Common Visit Codes: NOT BILLABLE TRACEY PAPPAS MD Oct 03, 2024 16:52
--- NOTE | 2024-10-03 17:02 | DVHPNRES ---
Progress Note Date Seen: Oct 03, 2024 Resident Creating Document: DIVYA PICKERING Medical Necessity Reason Pt with a Central, PICC or Fol: No Subjective Review of Systems Patient seen at bedside. 2 units of PRBC given since yesterday. Hemoglobin has picked up. Patient still wishes to be transferred to another hospital. Talked about the risk about transferring without communication from the other hospital Objective vital signs Vital Sign Date Time Temp Pulse Resp B/P (MAP) Pulse Ox O2 Delivery O2 Flow Rate FiO2 10/03/24 13:00 97.7 102 19 132/91 (105) 98 97.7 10/03/24 08:00 Room Air* 0 21 Total Intake and Output 10/02/24 10/02/24 10/03/24 15:00 23:00 07:00 Intake Total 500 ml 1130 ml 600 ml Balance 500 ml 1130 ml 600 ml medications Current Medications Medications Dose Ordered Sig/Joe Route Start Time Stop Time Status Last Admin Dose Admin Sodium Chloride 1,000 ml @ 60 mls/hr [id number] IV 09/30/24 15:00 10/02/24 16:49 60 MLS/HR Ondansetron HCl 4 mg Q4HP PRN IV 09/30/24 15:00 Pantoprazole Sodium 40 mg DAILY IV 09/30/24 15:15 10/01/24 12:16 40 MG Levothyroxine Sodium 100 mcg DAILY IV 10/01/24 10:00 10/03/24 08:52 100 MCG Ergocalciferol 50,000 unit Q7D PO 09/30/24 20:00 09/30/24 20:18 50,000 UNIT Calcium Carbonate 500 mg BID PO 09/30/24 22:00 10/03/24 08:52 500 MG Patient Own Medication 240 mg BID PO 09/30/24 22:00 Hold Acetaminophen/ Hydrocodone Bitart 1 tab Q8HP PRN PO 09/30/24 20:15 10/03/24 11:06 1 TAB Examination Constitutional: Yes: Weakness Eyes: No: Pain, Vision change, Conjunctivae inflammation, Eyelid inflammation, Other, Redness ENT: No: Ear pain, Ear discharge, Nose pain, Nose discharge, Nose congestion, Mouth pain, Mouth swelling, Throat pain, Throat swelling, Other Respiratory: No: Cough, Dry, Shortness of breath, SOB with excertion, Wheezing, Hemoptysis, Pleuritic Pain, Sputum, Wheezing, Other Cardiovascular: No: Chest Pain, Palpitations, Orthopnea, Paroxysmal Noc. Dyspnea, Edema, Lt Headedness, Other Gastrointestinal: No: Nausea, Vomiting, Abdominal Pain, Diarrhea, Constipation, Melena, Hematochezia, Other Genitourinary: No Dysuria, No Frequency, No Incontinence, No Hematuria, No Retention, No Other Musculoskeletal: back pain, foot pain Skin: No: Rash, Lesions, Jaundice, Bruising, Other Neurological: Weakness, Incoordination; No: Numbness, Change in speech, Confusion, Seizures, Other laboratory and microbiology Laboratory Tests 10/03/24 13:10 Test 10/03/24 13:10 Range/Units Serum Glucose 100 74-106 mg/dL Microbiology Date/Time Source Procedure Growth Status 09/30/24 06:50 Blood Blood Culture - Preliminary NO GROWTH AFTER 72 HOURS OF INCUBATION. Resulted Problem List/Assessment/Plan Problem List/Assessment/Plan # Sinus Tachycardia: palpiation r/o PE with CTPE if positive needs further discussion of anticoagulation risk benefit , EKG 12 lead pending. r/o R heart strain. 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 # hypothyroidism: TSH > 10 will start iv levothyroxine, dose adjustment at discharge and TSH f/u in 6-8 weeks # osteoarthritis: pain mx with PT as needed home analgesics # history of recent fall, mechanical: Fall precaution, physical therapy, check B12 folate. # Bilateral leg swelling, pain, weakness,: CT to check, depending on the further evaluation neurology questionable, DVT prophylaxis with SCDs only. DVT U/S to rule out thrombosis. 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 # Follows with the [facility] # chronic neuropathic pain, back pain, on # High risk of stress GI ulcer # mild transamnitis follow cmp # hypocalcemia: vitamin d and caco3 # HTN: amlodipine5 at home, bp well managed, target 140/90 as per AHA/ACC start if BP elevated. # to r/o Retevmo (selpercatinib) side effects # anemia - 2 PRBC GI ppx: IV pantoprazole Code Status: Full. Plan and goals of care discussed over [address] Bowen. Plan discussed with: Patient Date of Service: Oct 03, 2024 Billing Provider: FIDENCIO BOWEN MD Common Visit Codes: [id number] INP/OBS CARE(HIGH) DIVYA PICKERING RESIDENT Oct 03, 2024 14:55 FIDENCIO BOWEN MD Oct 07, 2024 22:02
[2024-10-04] VITALS (8 sets, daily range): BP systolic 118–142; BP diastolic 83–91; PULSE 102–109; RESP 16–18; TEMP 97–97.9; O2SAT 93–99
--- NOTE | 2024-10-04 17:01 | DVHDSRES ---
Discharge Summary Date of Admission Resident Creating Document: DIVYA PICKERING RESIDENT Sep 30, 2024 at 12:59 Date of Discharge: Oct 04, 2024 Admitting Diagnosis DVT U/S to rule out thrombosis. Labs/Diagnostic Data: Laboratory Results Test 10/03/24 13:10 10/02/24 07:32 10/01/24 05:47 10/01/24 03:10 White Blood Count 5.7 10^3/uL (4.4-10.8) Red Blood Count 3.48 10^6/uL (4.0-5.20) Hemoglobin 10.3 g/dL (12.2-16.2) Hematocrit 32.1 % (36.0-46.0) Mean Corpuscular Volume 92.4 fL (80.0-100.0) Mean Corpuscular Hemoglobin 29.5 pg (28.0-32.0) Mean Corpuscular Hemoglobin Concent 32.0 g/dL (32.0-36.0) Red Cell Distribution Width 16.9 % (11.8-14.3) Platelet Count 140 10^3/uL (140-450) Mean Platelet Volume 8.6 fL (6.9-10.8) Neutrophils (%) (Auto) 80.6 % (37.0-80.0) Lymphocytes (%) (Auto) 11.2 % (10.0-50.0) Monocytes (%) (Auto) 6.6 % (0.0-12.0) Eosinophils (%) (Auto) 1.4 % (0.0-7.0) Basophils (%) (Auto) 0.2 % (0.0-2.0) Neutrophils # (Auto) 4.6 10 ^3/uL (1.6-8.6) Lymphocytes # (Auto) 0.6 10 ^3/uL (0.4-5.4) Monocytes # (Auto) 0.4 10 ^3/uL (0-1.3) Eosinophils # (Auto) 0.1 10 ^3/uL (0-0.8) Basophils # (Auto) 0 10 ^3/uL (0-0.2) Nucleated Red Blood Cells 0.5 % Sodium Level 143 mmol/L (136-145) Potassium Level 4.5 mmol/L (3.5-5.1) Chloride Level 107 mmol/L (98-107) Carbon Dioxide Level 24 mmol/L (20-31) Anion Gap 12 (5-15) Blood Urea Nitrogen 26 mg/dL (9-23) Creatinine 1.04 mg/dL (0.550-1.02) Glomerular Filtration Rate Calc 60 mL/min (>90) BUN/Creatinine Ratio 25.0 (10.0-20.0) Serum Glucose 100 mg/dL (74-106) Calcium Level 6.4 mg/dL (8.7-10.4) Vitamin B12 Level 2460 pg/mL (211-911) Folic Acid 8.28 ng/mL (>5.38) Prothrombin Time 11.4 sec (9.3-11.8) Prothrombin Time INR 1.08 (0.9-1.15) Activated Partial Thromboplast Time 30.7 SEC (24.5-34.5) Phosphorus Level 4.2 mg/dL (2.4-5.1) Total Bilirubin 0.5 mg/dL (0.2-1.0) Aspartate Amino Transferase (AST) 85 U/L (13-40) Alanine Aminotransferase (ALT) < 9 U/L (7-40) Alkaline Phosphatase 222 U/L (46-116) Total Protein 6.9 g/dL (5.7-8.2) Albumin 3.8 g/dL (3.2-4.8) Influenza Type A Antigen Negative (Negative) Influenza Type B Antigen Negative (Negative) SARS-CoV-2 Antigen (Rapid) Negative (NEGATIVE) Test 09/30/24 21:25 09/30/24 16:57 09/30/24 16:50 09/30/24 14:20 Uric Acid 9.5 mg/dL (3.1-7.8) Magnesium Level 1.9 mg/dL (1.6-2.6) Lactic Acid Level 0.9 mmol/L (0.4-2.0) D-Dimer, Quantitative 5.42 mg/L FEU (0.0-0.49) Urine Color Light yellow (Yellow) Urine Clarity Clear (Clear) Urine pH 6.5 (5.0-9.0) Urine Specific [place] 1.014 (1.001-1.035) Urine Protein Trace (Negative) Urine Ketones Negative (Negative) Urine Blood Trace /uL (Negative) Urine Nitrite Negative (Negative) Urine Bilirubin Negative (Negative) Urine Urobilinogen Normal mg/dL (Negative) Urine Leukocyte Esterase Negative /uL (Negative) Urine RBC None seen /hpf (0 - 4) Urine Microscopic WBC 4 /HPF (0-5) Urine Squamous Epithelial Cells Many /hpf (<5) Urine Bacteria None seen /hpf (None Seen) Urine Glucose Normal mg/dL (Normal) Urine Opiates Screen Neg (NEGATIVE) Urine Fentanyl Screen Neg (NEGATIVE) Urine Barbiturates Screen Neg (NEGATIVE) Urine Phencyclidine Screen Neg (NEGATIVE) Urine Amphetamines Screen Neg (NEGATIVE) Urine Benzodiazepines Screen Neg (NEGATIVE) Urine Cocaine Screen Neg (NEGATIVE) Urine Cannabinoids Screen Neg (NEGATIVE) Test 09/30/24 06:50 Hemoglobin A1c 6.0 % A1C (<5.7) Direct Bilirubin 0.2 mg/dL (<0.3) Thyroid Stimulating Hormone (TSH) 20.35 uIU/mL (0.55-4.78) Free Thyroxine (T4) Calculated 0.97 ng/dL (0.89-1.76) Free Triiodothyronine (T3) pg/mL 2.13 pg/mL (2.3-4.2) Plasma/Serum Blood Alcohol < 3.0 mg/dL (<10) Other Laboratory Tests 10/03/24 13:10 Brief Hx & Hospital Course: Ms. Sage is a 64-year-old female with a complex medical history including stage IV thyroid cancer status post total thyroidectomy in 2011, currently in remission and on chronic suppression therapy, with previously known metastases to the lungs, liver, and bones. She also has a history of hypothyroidism, osteoarthritis, and a recent mechanical fall resulting in an intracranial bleed. She presented to the Emergency Department with complaints of bilateral leg pain and subjective weakness, without any history of recent trauma, fall, fever, chills, medication changes, surgery, or prolonged immobility. She denied any personal history of bleeding or clotting disorders. The patient came from home following the recommendation of her credit compliance officer-oncologist for further evaluation of her symptoms. She lives with family and reports good compliance with her medications. Initial labs revealed a hemoglobin level of 6.4 g/dL, for which she received two units of packed red blood cells. Post-transfusion, her hemoglobin improved to 10.3 g/dL. A transthoracic echocardiogram showed mild left ventricular hypertrophy, moderate tricuspid regurgitation, and a moderately large pericardial effusion. The cardiology team discussed the findings with the patient and informed her of the high likelihood of recurrence of pericardial fluid following pericardiocentesis, recommending a pericardial window procedure. A myocardial perfusion scan was performed and showed low probability for pulmonary embolism. Initially, the patient expressed a desire to be transferred to [facility] for further management. A [id number] discussion was conducted between Dr. Bal and a physician from [facility], after which [facility] agreed to accept the patient to telemetry. However, the patient later changed her mind and opted to pursue outpatient management with her oncologist and stem cleaning machine feeder. She was thoroughly counseled on the risks of leaving the hospital at this time, including the potential complications related to her cardiac findings and anemia. Despite this, she elected to leave the hospital and signed an Against Medical Advice (AMA) form. She was discharged with instructions to follow up closely with her outpatient providers. Condition at Discharge: Unstable Final Diagnosis/Problems List # Sinus Tachycardia: palpiation r/o PE with CTPE if positive needs further discussion of anticoagulation risk benefit , EKG 12 lead pending. r/o R heart strain. # stage IV thyroid cancer status post total thyroidectomy in 2011 # chronic suppression therapy, in remission, ( previously known metastasis to lungs, liver, bones) # recent mechanical fall status post intracranial bleed, stable: noted in CT head, no signs of ICH, tox -ve rule out posterior column disease workup in progress, fall precaution. # hypothyroidism: TSH > 10 will start iv levothyroxine, dose adjustment at discharge and TSH f/u in 6-8 weeks # osteoarthritis: pain mx with PT as needed home analgesics # history of recent fall, mechanical: Fall precaution, physical therapy, check B12 folate. # Bilateral leg swelling, pain, weakness,: CT to check, depending on the further evaluation neurology questionable, DVT prophylaxis with SCDs only. DVT U/S to rule out thrombosis. 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 # Follows with the [facility] hematooncology # chronic neuropathic pain, back pain, on # High risk of stress GI ulcer # mild transamnitis follow cmp # hypocalcemia: vitamin d and caco3 # HTN: amlodipine5 at home, bp well managed, target 140/90 as per AHA/ACC start if BP elevated. # to r/o Retevmo (selpercatinib) side effects # anemia - 2 PRBC # Pericardial effusion Discharge Disposition: Home Discharge Instruct/Medications Scheduled Amlodipine Besylate (Amlodipine Besylate), 5 MG PO DAILY, (Reported) Calcium (Calcium), 500 MG PO DAILY, (Reported) Magnesium (Magnesium 400 mg), 200 MG PO DAILY, (Reported) Selpercatinib (Retevmo), 240 MG PO BID, (Reported) Scheduled PRN Hydrocodone-Acetaminophen (Hydrocodone Bitartrate/AC 10-325 mg), 1 TAB PO Q8HP PRN for PAIN SCALE 7 THRU 10, (Reported) Ibuprofen (Ibuprofen), 800 MG PO Q6HP PRN for PAIN SCALE 1 THRU 6, (Reported) Discharge Statement: "Patient was advised to return to the ER or call 911 if any headaches, dizziness, shortness of breath, chest pain, abdominal pain, bleeding, fevers, or worsening of medical condition. Patient was counseled about treatment plan, medications, possible side effects, patientverbalized understanding. All questions were answered to the best of my ability. This discharge took greater then 30 minutes in planning, reviewing documentation, counseling the patient, and discussing with other team members." ASSESSMENT ASSESSMENT Assessment Date of Service: Oct 04, 2024 Billing Provider: FIDENCIO BOWEN MD Common Visit Codes: [id number] DISCH DAY >30min DIVYA PICKERING Oct 04, 2024 16:54 FIDENCIO BOWEN MD Oct 07, 2024 22:50
[2024-10-04] MEDS: ONDANSETRON HCL 4 MG/2 ML VIAL IV PRN (20:27)
[2024-10-04] MEDS: MORPHINE SULFATE INJ 2 MG/ml SYRG IV ONE (20:27)
[2024-10-05 01:00] VITALS: BP 138/90; PULSE 108; RESP 18; TEMP 97.8; O2SAT 93
[2024-10-05 05:00] VITALS: BP 141/93; PULSE 109; RESP 18; TEMP 98; O2SAT 96
[2024-10-05 08:00] VITALS: PULSE 107; PULSE 99; RESP 18; O2SAT 96
[2024-10-05 08:32] VITALS: BP 135/72; PULSE 106; RESP 20; TEMP 98.6; O2SAT 98
[2024-10-05 13:00] VITALS: BP 133/86; PULSE 106; RESP 20; TEMP 98.4; O2SAT 99
[2024-10-05] MEDS: HYDROmorphone HCL 2 MG/ML VL/or syr IV ONE (16:20)
--- NOTE | 2024-10-05 16:38 | DVHPNRES ---
Progress Note Date Seen: Oct 05, 2024 Resident Creating Document: DIVYA PICKERING Medical Necessity Reason Pt with a Central, PICC or Fol: No Medical Necessity Reason Seen at bedside today morning. Patient signed against medical advice discharge yesterday, then changed her plan and decided to stay. Patient is going for higher level of care for cardiac surgery to drain pericardial effusion. Patient being transferred to [facility] Objective vital signs Vital Sign Date Time Temp Pulse Resp B/P (MAP) Pulse Ox O2 Delivery O2 Flow Rate FiO2 10/05/24 16:20 106 19 135/72 10/05/24 13:00 98.4 99 98.4 10/05/24 08:00 Nasal Cannula* 2 28 Total Intake and Output 10/04/24 10/04/24 10/05/24 15:00 23:00 07:00 Intake Total 440 ml 860 ml Balance 440 ml 860 ml medications Current Medications Medications Dose Ordered Sig/Joe Route Start Time Stop Time Status Last Admin Dose Admin Sodium Chloride 1,000 ml @ 60 mls/hr [id number] IV 09/30/24 15:00 10/05/24 11:40 60 MLS/HR Ondansetron HCl 4 mg Q4HP PRN IV 09/30/24 15:00 10/04/24 20:27 4 MG Pantoprazole Sodium 40 mg DAILY IV 09/30/24 15:15 10/05/24 10:25 40 MG Levothyroxine Sodium 100 mcg DAILY IV 10/01/24 10:00 10/05/24 10:25 100 MCG Ergocalciferol 50,000 unit Q7D PO 09/30/24 20:00 09/30/24 20:18 50,000 UNIT Calcium Carbonate 500 mg BID PO 09/30/24 22:00 10/05/24 10:25 500 MG Patient Own Medication 240 mg BID PO 09/30/24 22:00 Hold Acetaminophen/ Hydrocodone Bitart 1 tab Q8HP PRN PO 09/30/24 20:15 10/05/24 10:34 1 TAB Examination Eyes: No: Pain, Vision change, Conjunctivae inflammation, Eyelid inflammation, Other, Redness ENT: No: Ear pain, Ear discharge, Nose pain, Nose discharge, Nose congestion, Mouth pain, Mouth swelling, Throat pain, Throat swelling, Other Respiratory: No: Cough, Dry, Shortness of breath, SOB with excertion, Wheezing, Hemoptysis, Pleuritic Pain, Sputum, Wheezing, Other Cardiovascular: No: Chest Pain, Palpitations, Orthopnea, Paroxysmal Noc. Dyspnea, Edema, Lt Headedness, Other Gastrointestinal: No: Nausea, Vomiting, Abdominal Pain, Diarrhea, Constipation, Melena, Hematochezia, Other Genitourinary: No Dysuria, No Frequency, No Incontinence, No Hematuria, No Retention, No Other Musculoskeletal: back pain, foot pain Skin: No: Rash, Lesions, Jaundice, Bruising, Other Neurological: Weakness, Incoordination; No: Numbness, Change in speech, Confusion, Seizures, laboratory and microbiology Laboratory Tests 10/03/24 13:10 Test 10/03/24 13:10 Range/Units Serum Glucose 100 74-106 mg/dL Microbiology Date/Time Source Procedure Growth Status 09/30/24 06:50 Blood Blood Culture - Final NO GROWTH AFTER 5 DAYS OF INCUBATION. Complete Problem List/Assessment/Plan Problem List/Assessment/Plan # Sinus Tachycardia: palpiation r/o PE with CTPE if positive needs further discussion of anticoagulation risk benefit , EKG 12 lead pending. r/o R heart strain. 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 # hypothyroidism: TSH > 10 will start iv levothyroxine, dose adjustment at discharge and TSH f/u in 6-8 weeks # osteoarthritis: pain mx with PT as needed home analgesics # history of recent fall, mechanical: Fall precaution, physical therapy, check B12 folate. # Bilateral leg swelling, pain, weakness,: CT to check, depending on the further evaluation neurology questionable, DVT prophylaxis with SCDs only. DVT U/S to rule out thrombosis. 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 # Follows with the [facility] hematooncology # chronic neuropathic pain, back pain, on # High risk of stress GI ulcer # mild transamnitis follow cmp # hypocalcemia: vitamin d and caco3 # HTN: amlodipine5 at home, bp well managed, target 140/90 as per AHA/ACC start if BP elevated. # to r/o Retevmo (selpercatinib) side effects # anemia - 2 PRBC GI ppx: IV pantoprazole Code Status: Full. Plan and goals of care discussed over [address] Bowen. Plan discussed with: Patient Date of Service: Oct 05, 2024 Billing Provider: FIDENCIO BOWEN MD Common Visit Codes: [id number] INP/OBS CARE(HIGH) DIVYA PICKERING RESIDENT Oct 05, 2024 16:33 FIDENCIO BOWEN MD Oct 07, 2024 22:47
[2024-10-05 16:49] VITALS: BP 137/97; PULSE 104; RESP 18; TEMP 98.4; O2SAT 98
== END 2024-10-05 16:05 | disposition short-term general hospital (02) | DRG 811 ==
LOC: ER 05:49 → EDBD 05:49 → OVERFLOW 12:59 → ER 14:59 → TELE-CENTR 17:18
PROVIDERS: ADMIT Student in an Organized Health Care Education/Training Program; ATTEND Emergency Medicine
PROC: 30233N1 Transfusion of Nonautologous Red Blood Cells into Peripheral Vein, Percutaneous Approach (ICD-10-PCS; principal; 2024-10-02)
PROC: 05H933Z Insertion of Infusion Device into Right Brachial Vein, Percutaneous Approach (ICD-10-PCS; 2024-10-02)
PROC: B54MZZA Ultrasonography of Right Upper Extremity Veins, Guidance (ICD-10-PCS; 2024-10-02)
DX: D64.81 Anemia due to antineoplastic chemotherapy (principal); N17.0 Acute kidney failure with tubular necrosis; R57.1 Hypovolemic shock; I31.39 Other pericardial effusion (noninflammatory); C78.00 Secondary malignant neoplasm of unspecified lung; C78.7 Secondary malignant neoplasm of liver and intrahepatic bile duct; C79.51 Secondary malignant neoplasm of bone; G89.4 Chronic pain syndrome; E83.51 Hypocalcemia; I10 Essential (primary) hypertension; E89.0 Postprocedural hypothyroidism; R74.01 Elevation of levels of liver transaminase levels; R00.0 Tachycardia, unspecified; Z20.822 Contact with and (suspected) exposure to COVID-19; Z88.0 Allergy status to penicillin; Z88.2 Allergy status to sulfonamides; Z86.73 Personal history of transient ischemic attack (TIA), and cerebral infarction without residual deficits; Z80.1 Family history of malignant neoplasm of trachea, bronchus and lung; T45.1X5A Adverse effect of antineoplastic and immunosuppressive drugs, initial encounter; Y92.89 Other specified places as the place of occurrence of the external cause; Z85.850 Personal history of malignant neoplasm of thyroid
CPT/HCPCS: 36415; 70450; 78579; 80048; 80053; 80076; 80307; 80320; 81001; 82607; 82746; 83036; 83605; 83735; 84100; 84439; 84443; 84481; 84550; 85014; 85018; 85025; 85379; 85610; 85730; 86850; 86900; 86901; 86920; 87040; 87426; 87804; 92610; 93306; 93886; 93970; 96361; 96374; 96375; 97163; G0378; J1885; J2405; J2470; J3490